=== PATIENT | female | born 1970 | race Caucasian/White ===

== ENCOUNTER → 2024-01-04 07:09 | Outpatient (REF) | payer OTHER, SELFPAY | LOC: WDC 07:09 | PROVIDERS: ATTENDING PHYSICIAN Obstetrics & Gynecology; FAMILY PHYSICIAN Internal Medicine | DX: Z12.31 Encounter for screening mammogram for malignant neoplasm of breast (principal) | CPT/HCPCS: 77063; 77067 ==

== ENCOUNTER 2024-07-15 15:27 | Emergency (ER) | payer OTHER, SELFPAY ==
[2024-07-15 15:28] VITALS: BP 134/93
--- NOTE | 2024-07-15 17:26 | ED.SKININJ ---
HPI-Injury
<oSphia Meehan MD, Resident - Last Filed: 07/15/24 22:54>
General
Chief Complaint: Bite
Time Seen by Provider: 07/15/24 17:12
History of Present Illness-Injury
Initial Injury comments:
This is a 53 year old female patient with PMH of hyperlipidemia who presented to the ED with after a dog bite. She states that she was walking in her neighborhood today when she was passing a leashed dog that started to become aggressive. The dog
electric cell tender was unable to control the dog and the patient had suffered a bites on the left hand and left thigh. The patient was unable to ask the dog electric cell tender any questions about the vaccination status of the dog. She proceeded to go to the urgent care where
her wounds were cleaned, she was administered a tetanus shot and given a prescription for Augmentin but she was unable to crop picker the script today due to pharmacy closing. She denies any fever, chills, severe swelling in hand or loss of sensation
in thigh or hand.
Past History
<Sophia Meehan MD, Resident - Last Filed: 07/15/24 22:54>
Past History
ED Past Medical History: Hypercholesterolemia and Other (PNA); Negative Asthma, HTN or NIDDM
ED Past Surgical History: Orthopedic (Spinal fusion of the Thoracic spine)
Social History
Tobacco: Non-smoker
Alcohol: None
Personal:
Living: with family
Review of Systems
<Sophia Meehan MD, Resident - Last Filed: 07/15/24 22:54>
Review of Systems
Constitutional: Denies fever or chills
Cardiac: Denies chest pain
ABD/GI: Denies abdominal pain
Musculoskeletal: Denies joint pain
Skin Exam
<Sophia Meehan MD, Resident - Last Filed: 07/15/24 22:54>
Bite
Left hand and left leg :
Type: animal (dog)
Skin has: other (small laceration on left index finger and puncture wound by dog on left thigh with mild swelling)
Phy Exam
<Sophia Meehan MD, Resident - Last Filed: 07/15/24 22:54>
General Physical Exam
General Presentation: well appearing and no apparent distress
Cardiovascular Exam
Cardiovascular Exam: regular rate/rhythm and no murmur
Heart Sounds: normal
Pulmonary Exam
Pulmonary Exam: lungs clear, no respiratory distress and no crackles
Gastrointestinal Exam
Gastrointestinal Exam: non tender, soft and non distended
Neurological Exam
Neurological Exam: oriented x3
Musculoskeletal Exam
Musculoskeletal Exam: no edema
Skin Exam
Skin Exam: warm/dry
Psychiatric Exam
Psychiatric Exam: normal mood/affect
Course
<Sophia Meehan MD, Resident - Last Filed: 07/15/24 22:54>
Orders/Labs/Results
Orders:
Orders
07/15/24 17:37
Amoxicillin 875 mg/Clav 125 mg [Augmentin 875 mg/125 mg] 1 tablet PO NOW STA
07/15/24 18:30
Rabies Immune Globulin/Pf [HyperRAB] 1,138 unit IM NOW STA
Rabies Vaccine (Pcec)/Pf [Rabavert Rabies Vacc W-Diluent] 2.5 unit IM .ONCE ONE
Vital Signs
Initial and Last Documented VS:
Initial Vital Signs
Temp Pulse Resp BP Pulse Ox
98.3 F 89 18 134/93 98
07/15/24 15:28 07/15/24 15:28 07/15/24 15:28 07/15/24 15:28 07/15/24 15:28
Last Documented Vital Signs
Temp Pulse Resp BP Pulse Ox
98.3 F 83 18 140/85 100
07/15/24 15:28 07/15/24 19:03 07/15/24 15:28 07/15/24 19:03 07/15/24 19:03
<Dwain Hernandez, DO - Last Filed: 07/15/24 17:44>
Orders/Labs/Results
Orders:
Orders
07/15/24 17:37
Amoxicillin 875 mg/Clav 125 mg [Augmentin 875 mg/125 mg] 1 tablet PO NOW STA
07/15/24 18:30
Rabies Immune Globulin/Pf [HyperRAB] 1,138 unit IM NOW STA
Rabies Vaccine (Pcec)/Pf [Rabavert Rabies Vacc W-Diluent] 2.5 unit IM .ONCE ONE
Vital Signs
Initial and Last Documented VS:
Initial Vital Signs
Temp Pulse Resp BP Pulse Ox
98.3 F 89 18 134/93 98
07/15/24 15:28 07/15/24 15:28 07/15/24 15:28 07/15/24 15:28 07/15/24 15:28
Last Documented Vital Signs
Temp Pulse Resp BP Pulse Ox
98.3 F 83 18 140/85 100
07/15/24 15:28 07/15/24 19:03 07/15/24 15:28 07/15/24 19:03 07/15/24 19:03
<Sophia Meehan MD, Resident - Last Filed: 07/15/24 22:54>
MDM/Problems Addressed
Differential Diagnosis Includes:
Dog bite
MDM/Problems Addressed:
Patient was afebrile on presentation. She was given a dose of Augmentin today. Patient was nervous about unknown status of dog and start rabies vaccination. She was given a rabies vaccination today as well. Patient received tetanus vaccination at
urgent care today. Advised patient that she should finish her course of Augmentin and follow-up with her primary care physician to check on wound and further care.
<Sophia Meehan MD, Resident - Last Filed: 07/15/24 22:54>
*Critical Care Note
Total Time (30-74mins, 75-104mins- exclusive of procedures): Not Applicable
ED Attending Note
<Sophia Meehan MD, Resident - Last Filed: 07/15/24 22:54>
-
Portions of this chart may have been created with voice recognition software.� Occasional wrong word or��sound alike� substitutions may have occurred due to the inherent limitations of voice recognition software.
<Dwain Hernandez, DO - Last Filed: 07/15/24 17:44>
ED Attending Note
Patient seen and examined by attending physician: Yes
I performed a history and physical exam of patient and discussed management with resident, I reviewed resident's note and agree with documented findings and plan of care.: Yes
ED Attending Note:
I have seen and evaluated the patient with a [id number] encounter. I have spoken to the resident and involved in the medical history, the physical exam, medical decision making.
Evaluation and management service: agree unless noted differently below.
Results interpretation: agree unless noted differently below.
Focused HPI: 53-year-old female presenting with dog bite to her left finger and her left thigh. This was an unknown dog walking around her neighborhood. She is unsure about the vaccination. Patient went to urgent care and was prescribed Augmentin
the pharmacy was closed
Physical exam: Small cut to her left finger. No deformity noted
Medical Decision Making: Will give dose of Augmentin. Her tetanus is up-to-date. Patient wants to start rabies vaccinations
Discharge Plan
Departure
Patient Disposition: Home (Routine Discharge)
Date of Disposition: 07/15/24
Time of Disposition: 18:00
Patient with high blood pressure during this ER visit?: Yes
Discharge Problem:
Dog bite
Prescriptions:
New
RabAvert (PF) 2.5 unit Suspension For Reconstitution
1 ml IM . DIRECTED Qty: 3 0RF
Rx Instructions:
See Rabies Vaccine Post Exposure Prophylaxis Instruction Sheet for Dosing Instructions
Referrals:
Lillian Michelle MD [Family Provider] -
Stand Alone Forms: Rabies Vaccine Post Exp Dosing
Activity Restrictions/Additional Instructions:
If experiencing symptoms such as worsening hand pain, worsening swelling, or high grade fevers, please return to the ER. Take Augmentin as prescribed in instructions. Take rabies vaccine as written in the instructions at the Outpatient Infusion
Department. Follow up with your family physician in a week.
Interventions
Interventions:
*Risk Screen - Suicide Last Done: 07/15/24 19:04
*General Assessment Last Done: 07/15/24 15:28
*Neglect/Abuse Screening Last Done: 07/15/24 19:04
ED- Fall Risk Assessment Last Done: 07/15/24 19:30
*ED COVID-19 Vaccine History Last Done: 07/15/24 19:30
*Nursing Disposition Last Done: 07/15/24 19:30
ED-Skin Assessment Last Done: 07/15/24 19:30
Discharge Date and Time
Discharge Date/Time: 07/15/24 19:32
Print Language: URDU
[2024-07-15 17:45] VITALS: BMI 23.0
[2024-07-15] MEDS: RABAVERT RABIES VACC W-DILUENT 2.5 UNIT IM (18:46)
[2024-07-15] MEDS: HyperRAB 1138 UNIT IM (18:47)
[2024-07-15] MEDS: AUGMENTIN 875 MG/125 MG 1 TABLET PO (18:52)
[2024-07-15 19:03] VITALS: BP 140/85
== END 2024-07-15 19:32 | disposition home or self-care (01) ==
LOC: EMR 15:27
PROVIDERS: EMERGENCY PHYSICIAN Student in an Organized Health Care Education/Training Program; FAMILY PHYSICIAN Internal Medicine
DX: S61.211A Laceration without foreign body of left index finger without damage to nail, initial encounter (principal); S71.132A Puncture wound without foreign body, left thigh, initial encounter; W54.0XXA Bitten by dog, initial encounter; E78.00 Pure hypercholesterolemia, unspecified; Z23 Encounter for immunization
CPT/HCPCS: 90471; 96372; 99284; 90375; 90675

== ENCOUNTER → 2024-07-18 14:37 | Outpatient (REF) | payer OTHER, SELFPAY | LOC: WDC 14:37 | PROVIDERS: ATTENDING PHYSICIAN Obstetrics & Gynecology; FAMILY PHYSICIAN Internal Medicine | DX: R92.2 Inconclusive mammogram (principal) | CPT/HCPCS: 76641 ==

== ENCOUNTER 2024-07-30 08:21 | Outpatient (RCR) | payer OTHER, SELFPAY ==
[2024-07-18 13:45] VITALS: BP 139/71
[2024-07-18] MEDS: RABAVERT RABIES VACC W-DILUENT 2.5 UNIT IM (14:00)
[2024-07-23 15:19] VITALS: BP 124/74
[2024-07-23] MEDS: RABAVERT RABIES VACC W-DILUENT 2.5 UNIT IM (15:27)
[2024-07-30 08:40] VITALS: BP 118/80
[2024-07-30] MEDS: RABAVERT RABIES VACC W-DILUENT 2.5 UNIT IM (08:50)
== END 2024-07-31 09:08 | disposition home or self-care (01) ==
LOC: OID 08:21
PROVIDERS: ATTENDING PHYSICIAN Student in an Organized Health Care Education/Training Program; FAMILY PHYSICIAN Internal Medicine
DX: Z20.3 Contact with and (suspected) exposure to rabies (principal); Z23 Encounter for immunization
CPT/HCPCS: 90471; 90675

== ENCOUNTER → 2025-01-09 07:41 | Outpatient (REF) | payer OTHER, SELFPAY | LOC: WDC 07:41 | PROVIDERS: ATTENDING PHYSICIAN Obstetrics & Gynecology; FAMILY PHYSICIAN Internal Medicine | DX: Z12.31 Encounter for screening mammogram for malignant neoplasm of breast (principal); R92.8 Other abnormal and inconclusive findings on diagnostic imaging of breast | CPT/HCPCS: 76642; 77063; 77067 ==

== ENCOUNTER → 2025-03-06 14:21 | Outpatient (REF) | payer OTHER, SELFPAY | LOC: WDC 14:21 | PROVIDERS: ATTENDING PHYSICIAN Obstetrics & Gynecology; FAMILY PHYSICIAN Internal Medicine | DX: N63.21 Unspecified lump in the left breast, upper outer quadrant (principal) | CPT/HCPCS: 76642 ==

== ENCOUNTER → 2025-05-17 16:26 | Outpatient (REF) | payer OTHER, SELFPAY | LOC: MRI 3T 16:26 | PROVIDERS: ATTENDING PHYSICIAN Surgery; FAMILY PHYSICIAN Internal Medicine | DX: N63.21 Unspecified lump in the left breast, upper outer quadrant (principal); Z80.3 Family history of malignant neoplasm of breast | CPT/HCPCS: 77049; A9585 ==

== ENCOUNTER → 2025-05-29 13:52 | Outpatient (REF) | payer OTHER, SELFPAY | LOC: WDC 13:52 | PROVIDERS: ATTENDING PHYSICIAN Nurse Practitioner Adult Health; FAMILY PHYSICIAN Internal Medicine | DX: R92.8 Other abnormal and inconclusive findings on diagnostic imaging of breast (principal) | CPT/HCPCS: 76642 ==